=== PATIENT | male | born 1995 | race Caucasian/White ===

== ENCOUNTER 2023-05-09 23:42 | Emergency (ER) | payer MEDICAID ==
[~2023-05-09] VITALS: Ht 177.8 cm; Wt 72.6 kg
[2023-05-09 23:42] VITALS: BP 142/88; PULSE 62; RESP 16; TEMP 98.2
[2023-05-10 02:21] VITALS: BP 142/88; PULSE 62; RESP 16; TEMP 98.2
== END 2023-05-10 02:21 ==
LOC: MED 23:42
DX: S51.811A Laceration without foreign body of right forearm, initial encounter (principal); X58.XXXA Exposure to other specified factors, initial encounter; Y93.89 Activity, other specified; Y92.89 Other specified places as the place of occurrence of the external cause; Y99.8 Other external cause status
CPT/HCPCS: 12001; 99282